=== PATIENT | female | born 1970 | race Caucasian/White ===

== ENCOUNTER 2018-05-26 13:07 | Emergency (ER) | payer MEDICAID ==
[~2018-05-26] VITALS: Ht 170.2 cm; Wt 47.2 kg
[2018-05-26 13:32] VITALS: Ht 170.2 cm; Wt 47.2 kg
[2018-05-26 14:37] LABS: ALKALINE PHOSPHATASE 72 U/L (46-116); ALT/SGPT 10 U/L (14-59); AST/SGOT 32 U/L (15-37); BILIRUBIN TOTAL 0.3 mg/dL (0.20-1.00); CALCIUM 8.7 mg/dL (8.5-10.1); CARBON DIOXIDE 30.4 mmol/L (21-32); CHLORIDE SERUM 99 mmol/L (98-107); CREATININE SERUM 0.8 mg/dL (0.6-1.0); GFR1 > 60 mL/min; GLUCOSE SERUM 123 mg/dL (74-106); SODIUM SERUM 139 mmol/L (136-145); TOTAL PROTEIN, SERUM 6.7 g/dL (6.4-8.2)
[2018-05-26 14:41] LABS: CHOLESTEROL 114 mg/dL (<200)
[2018-05-26 14:42] LABS: POTASSIUM SERUM 2.8 mmol/L (3.5-5.1)
[2018-05-26 15:01] LABS: BASOPHIL % 0.8 % (0-2); PLATELET COUNT 363 x10^3mcL (130-400)
[2018-05-26 15:03] LABS: RED CELL DISTRIBUTION WIDTH 19.6 % (11.5-14.5)
[2018-05-26 15:10] LABS: UA SPECIFIC GRAVITY 1.025 (1.005-1.035); microscopic required? YES; urine erythrocyte 2+ (NEGATIVE)
[2018-05-26 16:06] VITALS: BP 138/73
[2018-05-26 16:19] LABS: rbc morphology (normal/abnorm) ABNORMAL (NORMAL)
[2018-05-26 16:20] LABS: ovalocyte/elliptocyte 1+
== END 2018-05-26 16:06 | disposition short-term general hospital (02) ==
LOC: ED 13:07
PROVIDERS: Emergency Medicine
DX: G93.9 Disorder of brain, unspecified (principal); R91.8 Other nonspecific abnormal finding of lung field; R41.0 Disorientation, unspecified
CPT/HCPCS: G0480; J7030; Q0092